=== PATIENT | female | born 1960 | race Caucasian/White ===

== ENCOUNTER 2017-09-19 12:03 | Emergency (ER) | payer MEDICARE, OTHER | END 2017-09-19 12:47 | disposition home or self-care (01) | LOC: E/R 12:03 | DX: J06.9 Acute upper respiratory infection, unspecified (principal); E11.9 Type 2 diabetes mellitus without complications; J45.909 Unspecified asthma, uncomplicated; Z79.4 Long term (current) use of insulin; Z79.82 Long term (current) use of aspirin | CPT/HCPCS: 99283 ==

== ENCOUNTER 2017-09-21 12:28 | Emergency (ER) | payer MEDICARE ==
[2017-09-21] MEDS: IPRATROPIUM (NEB) 0.5 MG/2.5 ML AMP HHN (15:23)
[2017-09-21] MEDS: ALBUTEROL 0.083% (NEB) 2.5 MG/3 ML AMP HHN (15:23)
== END 2017-09-21 15:55 | disposition home or self-care (01) ==
LOC: FTE 12:28
DX: J45.901 Unspecified asthma with (acute) exacerbation (principal); I10 Essential (primary) hypertension; E11.9 Type 2 diabetes mellitus without complications; Z79.4 Long term (current) use of insulin; Z79.82 Long term (current) use of aspirin
CPT/HCPCS: 94664; 99284-25

== ENCOUNTER 2017-12-17 11:25 | Emergency (ER) | payer MEDICARE ==
[2017-12-17 13:36] LABS: ADD UMIC YES; UR ASCORBIC ACID NEGATIVE (NEGATIVE); UR BACTERIA FEW /HPF (NONE SEEN); UR BILIRUBIN (Dip) NEGATIVE (NEGATIVE); UR BLOOD (Dip) 2+ mg/dL (NEGATIVE); UR CLARITY CLOUDY (CLEAR); UR COLOR YELLOW (YELLOW); UR GLUCOSE (Dip) NEGATIVE (NEGATIVE); UR KETONES (Dip) NEGATIVE (NEGATIVE); UR LEUKOCYTE ESTERASE (Dip) 3+ Leu/ul (NEGATIVE); UR NITRITE (Dip) NEGATIVE (NEGATIVE); UR RBC 27 /HPF (0-5); UR SPECIFIC GRAVITY (Dip) 1.013 (1.003-1.030); UR TOTAL PROTEIN (Dip) 1+ mg/dl (NEGATIVE); UR UROBILINOGEN (Dip) NEGATIVE (NEGATIVE); UR WBC > 182 /HPF (0-5)
== END 2017-12-17 13:23 | disposition home or self-care (01) ==
LOC: FTE 11:25
DX: N39.0 Urinary tract infection, site not specified (principal); I10 Essential (primary) hypertension; E11.9 Type 2 diabetes mellitus without complications; J45.909 Unspecified asthma, uncomplicated; Z79.4 Long term (current) use of insulin; Z79.82 Long term (current) use of aspirin
CPT/HCPCS: 81001; 87086; 99283

== ENCOUNTER 2018-03-23 00:39 | Emergency (ER) | payer MEDICARE ==
[2018-03-23 05:11] LABS: URINE BLOOD (Dip) POC Negative (NEGATIVE); URINE GLUCOSE (Dip) POC Negative (NEGATIVE); URINE KETONES (Dip) POC 1+ (NEGATIVE); URINE LEUKOCYTE EST (Dip) POC Negative (NEGATIVE); URINE NITRITE (Dip) POC Negative (NEGATIVE); URINE TOTAL PROTEIN POC 2+ (NEGATIVE)
[2018-03-23 05:25] LABS: ADD MAN DIFF? NO; BASOPHIL # 0.1 10^3/ul (0.0-0.1); BASOPHILS % 0.3 % (0.0-2.0); EOSINOPHILS # 0.2 10^3/ul (0.0-0.5); EOSINOPHILS % 1.3 % (0.0-7.0); HEMATOCRIT 46.8 % (37.0-47.0); HEMOGLOBIN 14.5 g/dl (12.0-16.0); LYMPHOCYTES # 2.9 10^3/ul (0.8-2.9); LYMPHOCYTES % 15.8 % (15.0-51.0); MEAN CORPUSCULAR HEMOGLOBIN 26.7 pg (29.0-33.0); MEAN CORPUSCULAR VOLUME 86.2 fl (82.0-101.0); MEAN PLATELET VOLUME 9.5 fl (7.4-10.4); MONOCYTE # 0.8 10^3/ul (0.3-0.9); MONOCYTES % 4.5 % (0.0-11.0); NEUTROPHIL # 14.1 10^3/ul (1.6-7.5); NEUTROPHILS % 77.4 % (39.0-77.0); PLATELET COUNT 343 10^3/UL (140-415); RED BLOOD COUNT 5.43 10^6/ul (4.20-5.40); RED CELL DISTRIBUTION WIDTH 15.3 % (11.5-14.5)
[2018-03-23 05:25] LABS: WHITE BLOOD COUNT 18.2 10^3/ul (4.8-10.8)
[2018-03-23 05:53] LABS: ALANINE AMINOTRANSFERASE 36 IU/L (13-69); ALBUMIN/GLOBULIN RATIO 1.28; ALKALINE PHOSPHATASE 137 IU/L (42-121); ANION GAP 18 (8-16); ASPARTATE AMINO TRANSFERASE 34 IU/L (15-46); BILIRUBIN,INDIRECT 0.4 mg/dl (0-1.1); BILIRUBIN,TOTAL 0.4 mg/dl (0.2-1.3); BLOOD UREA NITROGEN 27 mg/dl (7-20); CALCIUM 10.5 mg/dl (8.4-10.2); CARBON DIOXIDE 21 mmol/L (21-31); CHLORIDE 114 mmol/L (97-110); CREATININE 1.31 mg/dl (0.44-1.00); GLUCOSE 179 mg/dl (70-220); LIPASE 66 U/L (23-300); SODIUM 148 mmol/L (135-144); TOTAL PROTEIN 8.9 g/dl (6.1-8.1)
[2018-03-23] MEDS: morphine 2 MG INJ IV ×2 (06:00→06:21)
[2018-03-23] MEDS: HYDROmorphONE 1 MG/ML SYG IV (06:35)
[2018-03-23] MEDS: SOD CHLORIDE 0.9% 1,000 ML IV (06:35)
[2018-03-23] MEDS: ONDANSETRON 4 MG INJ IV (06:35)
== END 2018-03-23 09:26 | disposition home or self-care (01) ==
LOC: E/R 00:39
DX: K56.7 Ileus, unspecified (principal); D72.829 Elevated white blood cell count, unspecified; I10 Essential (primary) hypertension; E11.9 Type 2 diabetes mellitus without complications; J45.909 Unspecified asthma, uncomplicated; Z79.4 Long term (current) use of insulin; Z79.82 Long term (current) use of aspirin
CPT/HCPCS: 36415; 74176; 80053; 81003; 82962; 83690; 85025; 96374; 96375; 99285-25

== ENCOUNTER 2018-06-01 12:09 | Emergency (ER) | payer OTHER, MEDICARE ==
[2018-06-01] MEDS: ACETAMINOPHEN 500 MG TAB PO (13:23)
== END 2018-06-01 15:20 | disposition home or self-care (01) ==
LOC: FTE 12:09
DX: S62.346A Nondisplaced fracture of base of fifth metacarpal bone, right hand, initial encounter for closed fracture (principal); E11.9 Type 2 diabetes mellitus without complications; I10 Essential (primary) hypertension; J45.909 Unspecified asthma, uncomplicated; W01.0XXA Fall on same level from slipping, tripping and stumbling without subsequent striking against object, initial encounter; Y92.9 Unspecified place or not applicable; Z79.4 Long term (current) use of insulin; Z79.82 Long term (current) use of aspirin
CPT/HCPCS: 29125; 73110-RT; 73130-RT; 99283-25

== ENCOUNTER 2018-06-21 18:01 | Emergency (ER) | payer OTHER ==
[2018-06-21 19:43] LABS: URINE BLOOD (Dip) POC 3+ (NEGATIVE); URINE GLUCOSE (Dip) POC Negative (NEGATIVE); URINE KETONES (Dip) POC Negative (NEGATIVE); URINE LEUKOCYTE EST (Dip) POC 1+ (NEGATIVE); URINE NITRITE (Dip) POC Negative (NEGATIVE); URINE TOTAL PROTEIN POC 3+ (NEGATIVE)
[2018-06-21 19:43] LABS: URINE PH (Dip) POC 8.5 (5.0-8.5)
== END 2018-06-21 20:00 | disposition home or self-care (01) ==
LOC: E/R 18:01
DX: I10 Essential (primary) hypertension (principal); E11.9 Type 2 diabetes mellitus without complications; J45.909 Unspecified asthma, uncomplicated; Z79.82 Long term (current) use of aspirin; Z79.4 Long term (current) use of insulin
CPT/HCPCS: 81003; 99283

== ENCOUNTER 2018-12-12 23:16 | Observation (INO) | payer OTHER ==
[2018-12-13 00:03] LABS: URINE BLOOD (Dip) POC Trace-intact (NEGATIVE); URINE GLUCOSE (Dip) POC Negative (NEGATIVE); URINE KETONES (Dip) POC Negative (NEGATIVE); URINE LEUKOCYTE EST (Dip) POC 1+ (NEGATIVE); URINE NITRITE (Dip) POC Negative (NEGATIVE); URINE TOTAL PROTEIN POC Negative (NEGATIVE)
[2018-12-13 00:03] LABS: URINE PH (Dip) POC 5.5 (5.0-8.5)
[2018-12-13 00:12] LABS: ADD MAN DIFF? NO
[2018-12-13] MEDS: LOPERAMIDE 2 MG CAP PO (00:12)
[2018-12-13] MEDS: morphine 2 MG INJ IV ×2 (00:12→06:57)
[2018-12-13] MEDS: ONDANSETRON 4 MG INJ IV (00:12)
[2018-12-13 00:26] LABS: WHITE BLOOD COUNT 15.6 10^3/ul (4.8-10.8)
[2018-12-13 00:26] LABS: BASOPHIL # 0.1 10^3/ul (0.0-0.1); BASOPHILS % 0.6 % (0.0-2.0); EOSINOPHILS # 1.1 10^3/ul (0.0-0.5); HEMOGLOBIN 13.1 g/dl (12.0-16.0); LYMPHOCYTES # 4.8 10^3/ul (0.8-2.9); LYMPHOCYTES % 30.4 % (15.0-51.0); MEAN CORPUSCULAR HEMOGLOBIN 26.5 pg (29.0-33.0); MEAN CORPUSCULAR HGB CONC 30.5 g/dl (32.0-37.0); MEAN CORPUSCULAR VOLUME 86.9 fl (82.0-101.0); MEAN PLATELET VOLUME 9.6 fl (7.4-10.4); MONOCYTE # 0.8 10^3/ul (0.3-0.9); MONOCYTES % 5.1 % (0.0-11.0); NEUTROPHIL # 8.8 10^3/ul (1.6-7.5); NEUTROPHILS % 56.3 % (39.0-77.0); PLATELET COUNT 299 10^3/UL (140-415); RED BLOOD COUNT 4.95 10^6/ul (4.20-5.40); RED CELL DISTRIBUTION WIDTH 15.9 % (11.5-14.5)
[2018-12-13 00:39] LABS: ALANINE AMINOTRANSFERASE 19 IU/L (13-69); ALBUMIN 4.4 g/dl (3.3-4.9); ALBUMIN/GLOBULIN RATIO 1.25; ALKALINE PHOSPHATASE 104 IU/L (42-121); ANION GAP 14 (5-13); ASPARTATE AMINO TRANSFERASE 26 IU/L (15-46); BILIRUBIN,INDIRECT 0.1 mg/dl (0-1.1); BILIRUBIN,TOTAL 0.1 mg/dl (0.2-1.3); BLOOD UREA NITROGEN 22 mg/dl (7-20); CALCIUM 9.9 mg/dl (8.4-10.2); CARBON DIOXIDE 24 mmol/L (21-31); CHLORIDE 105 mmol/L (97-110); CREATININE 0.98 mg/dl (0.44-1.00); Estimated GFR 58 mL/min (>60); GLUCOSE 58 mg/dl (70-220); LIPASE 79 U/L (23-300); POTASSIUM 4.6 mmol/L (3.5-5.1); SODIUM 143 mmol/L (135-144); TOTAL PROTEIN 7.9 g/dl (6.1-8.1)
[2018-12-13] MEDS ORDERED: DEXTROSE 50% 50 ML SYRINGE (01:02)
[2018-12-13] MEDS: CEFTRIAXONE 1 GM/50 ML (PMX) 50 ML IVPB (02:11)
[2018-12-13] MEDS: metroNIDAZOLE 500 MG/NS (PMX) 100 ML IVPB ×3 (03:53→20:37)
[2018-12-13] MEDS: DEXTROSE 10% 1,000 ML IV ×2 (03:54→13:30)
[2018-12-13] MEDS: LEVOFLOXACIN 500MG/D5W (PMX) 100 ML IVPB ×2 (06:30→07:43)
[2018-12-13] MEDS ORDERED: ACETAMINOPHEN 325 MG TAB PO (06:30)
[2018-12-13] MEDS ORDERED: NON-FORMULARY/PATIENT OWN MED (Triazolam* 0.25 MG) PO (06:30)
[2018-12-13] MEDS ORDERED: ONDANSETRON 4 MG INJ IV (06:30)
[2018-12-13] MEDS ORDERED: GLUCAGON 1 MG INJ IM (07:00)
[2018-12-13] MEDS ORDERED: GLUCOSE GEL 15 GRAM TUBE PO ×2 (07:00)
[2018-12-13] MEDS ORDERED: DEXTROSE 50% 50 ML SYRINGE IV ×2 (07:00)
[2018-12-13] MEDS ORDERED: GLUCOSE GEL 15 GRAM TUBE BUCCAL (07:00)
[2018-12-13] MEDS: INSULIN ASPART [NOVOLOG] 3 ML PEN SC ×5 (07:55→20:35)
[2018-12-13 08:24] LABS: ADD MAN DIFF? NO
[2018-12-13 08:25] LABS: WHITE BLOOD COUNT 13.9 10^3/ul (4.8-10.8)
[2018-12-13 08:25] LABS: BASOPHIL # 0.1 10^3/ul (0.0-0.1); BASOPHILS % 0.6 % (0.0-2.0); EOSINOPHILS # 1.1 10^3/ul (0.0-0.5); EOSINOPHILS % 7.6 % (0.0-7.0); HEMATOCRIT 39.8 % (37.0-47.0); HEMOGLOBIN 12.2 g/dl (12.0-16.0); LYMPHOCYTES # 3.5 10^3/ul (0.8-2.9); LYMPHOCYTES % 25.4 % (15.0-51.0); MEAN CORPUSCULAR HEMOGLOBIN 26.8 pg (29.0-33.0); MEAN CORPUSCULAR HGB CONC 30.7 g/dl (32.0-37.0); MEAN CORPUSCULAR VOLUME 87.5 fl (82.0-101.0); MEAN PLATELET VOLUME 9.7 fl (7.4-10.4); MONOCYTE # 0.8 10^3/ul (0.3-0.9); MONOCYTES % 5.4 % (0.0-11.0); NEUTROPHIL # 8.4 10^3/ul (1.6-7.5); NEUTROPHILS % 60.5 % (39.0-77.0); PLATELET COUNT 275 10^3/UL (140-415); RED BLOOD COUNT 4.55 10^6/ul (4.20-5.40); RED CELL DISTRIBUTION WIDTH 15.9 % (11.5-14.5)
[2018-12-13 08:45] LABS: ANION GAP 10 (5-13); BLOOD UREA NITROGEN 20 mg/dl (7-20); CALCIUM 9.5 mg/dl (8.4-10.2); CARBON DIOXIDE 26 mmol/L (21-31); CHLORIDE 108 mmol/L (97-110); CHOL/HDL RATIO 6.8 RATIO; CHOLESTEROL 164 mg/dl (100-200); CREATININE 1.02 mg/dl (0.44-1.00); Estimated GFR 56 mL/min (>60); GLUCOSE 149 mg/dl (70-220); HDL CHOLESTEROL 24 mg/dl (37-92); LDL CHOLESTEROL,CALCULATED 82 mg/dl; PHOSPHORUS 4.2 mg/dl (2.5-4.9); POTASSIUM 4.4 mmol/L (3.5-5.1); SODIUM 144 mmol/L (135-144); TRIGLYCERIDES 292 mg/dl (0-149)
[2018-12-13] MEDS ORDERED: NON-FORMULARY/PATIENT OWN MED (Salmeterol Xinaf/Fluticasone* (Advair*) 1 INH) INHALATION (09:00)
[2018-12-13] MEDS: ALBUTEROL HFA 8 GM INHALER INH ×4 (09:00→20:37)
[2018-12-13] MEDS ORDERED: NON-FORMULARY/PATIENT OWN MED (Omeprazole* 40 MG) PO (09:00)
[2018-12-13] MEDS ORDERED: NON-FORMULARY/PATIENT OWN MED (Meloxicam* 15 MG) PO (09:00)
[2018-12-13] MEDS: FERROUS SULFATE (EC) 325 MG TAB PO (09:04)
[2018-12-13] MEDS: LEVOFLOXACIN 500 MG TAB PO (09:04)
[2018-12-13] MEDS: metFORMIN 500 MG TAB PO (09:04)
[2018-12-13] MEDS: VENLAFAXINE 75 MG TABLET PO (09:05)
[2018-12-13] MEDS: BUPROPION 100 MG TAB PO ×2 (09:05→20:36)
[2018-12-13] MEDS: ASPIRIN (EC) 81 MG TAB PO (09:05)
[2018-12-13] MEDS: METOPROLOL 25 MG TAB PO (09:05)
[2018-12-13] MEDS: PANTOPRAZOLE (EC) 40 MG TAB PO (09:05)
[2018-12-13] MEDS: DICYCLOMINE 10 MG CAP PO ×3 (09:05→20:37)
[2018-12-13] MEDS: LISINOPRIL 20 MG TAB PO (09:06)
[2018-12-13] MEDS: ALPRAZOLAM 0.5 MG TAB PO ×2 (09:10→20:36)
[2018-12-13] MEDS: PREGABALIN 100 MG CAP PO ×2 (10:00→20:36)
[2018-12-13] MEDS: FLUTICASONE/VILANTEROL 100-25 INH (11:59)
[2018-12-13] MEDS ORDERED: PREGABALIN 50 MG CAP PO (12:00)
[2018-12-13] MEDS: MELOXICAM 15 MG TAB PO (12:15)
[2018-12-13] MEDS: DEXTROSE 5% 1,000 ML IV (13:11)
[2018-12-13] MEDS: LACTOBACILLUS RHAMNOSUS CAP PO (20:36)
[2018-12-13] MEDS: ZOLPIDEM 5 MG TAB PO (22:04)
[2018-12-14] MEDS: ALBUTEROL HFA 8 GM INHALER INH ×6 (01:00→20:16)
[2018-12-14] MEDS: ACCU-CHEK XX (01:12)
[2018-12-14] MEDS: DEXTROSE 5% 1,000 ML IV ×2 (03:52→17:14)
[2018-12-14] MEDS: PANTOPRAZOLE (EC) 40 MG TAB PO (05:06)
[2018-12-14] MEDS: metroNIDAZOLE 500 MG/NS (PMX) 100 ML IVPB ×3 (05:06→21:12)
[2018-12-14] MEDS: LEVOFLOXACIN 500 MG TAB PO (05:06)
[2018-12-14] MEDS ORDERED: LEVOFLOXACIN 500 MG TAB PO (08:00)
[2018-12-14] MEDS: BUPROPION 100 MG TAB PO ×2 (08:10→20:16)
[2018-12-14] MEDS: FLUTICASONE/VILANTEROL 100-25 INH (08:10)
[2018-12-14] MEDS: DICYCLOMINE 10 MG CAP PO ×3 (08:10→20:16)
[2018-12-14] MEDS: LACTOBACILLUS RHAMNOSUS CAP PO ×2 (08:10→20:15)
[2018-12-14] MEDS: ALPRAZOLAM 0.5 MG TAB PO ×2 (08:11→20:16)
[2018-12-14] MEDS: LISINOPRIL 20 MG TAB PO (08:11)
[2018-12-14] MEDS: VENLAFAXINE 75 MG TABLET PO (08:11)
[2018-12-14] MEDS: MELOXICAM 15 MG TAB PO (08:11)
[2018-12-14] MEDS: FERROUS SULFATE (EC) 325 MG TAB PO (08:11)
[2018-12-14] MEDS: PREGABALIN 100 MG CAP PO ×2 (08:11→20:15)
[2018-12-14] MEDS: ASPIRIN (EC) 81 MG TAB PO (08:12)
[2018-12-14] MEDS: METOPROLOL 25 MG TAB PO (08:12)
[2018-12-14] MEDS: INSULIN ASPART [NOVOLOG] 3 ML PEN SC ×4 (08:13→20:51)
[2018-12-14 08:46] LABS: ADD MAN DIFF? NO
[2018-12-14 08:49] LABS: BASOPHIL # 0.1 10^3/ul (0.0-0.1); BASOPHILS % 0.5 % (0.0-2.0); EOSINOPHILS # 1.2 10^3/ul (0.0-0.5); EOSINOPHILS % 12.4 % (0.0-7.0); HEMATOCRIT 40.4 % (37.0-47.0); HEMOGLOBIN 12.3 g/dl (12.0-16.0); LYMPHOCYTES # 2.6 10^3/ul (0.8-2.9); LYMPHOCYTES % 25.7 % (15.0-51.0); MEAN CORPUSCULAR HEMOGLOBIN 26.7 pg (29.0-33.0); MEAN CORPUSCULAR HGB CONC 30.4 g/dl (32.0-37.0); MEAN CORPUSCULAR VOLUME 87.8 fl (82.0-101.0); MEAN PLATELET VOLUME 9.7 fl (7.4-10.4); MONOCYTE # 0.6 10^3/ul (0.3-0.9); MONOCYTES % 5.7 % (0.0-11.0); NEUTROPHIL # 5.5 10^3/ul (1.6-7.5); NEUTROPHILS % 55.2 % (39.0-77.0); PLATELET COUNT 253 10^3/UL (140-415); RED CELL DISTRIBUTION WIDTH 15.7 % (11.5-14.5)
[2018-12-14 08:49] LABS: WHITE BLOOD COUNT 9.9 10^3/ul (4.8-10.8)
[2018-12-14 09:09] LABS: BLOOD UREA NITROGEN 13 mg/dl (7-20); CARBON DIOXIDE 27 mmol/L (21-31); CHLORIDE 106 mmol/L (97-110); CREATININE 0.89 mg/dl (0.44-1.00); Estimated GFR > 60 mL/min (>60); GLUCOSE 167 mg/dl (70-220); POTASSIUM 4.6 mmol/L (3.5-5.1)
[2018-12-14 09:10] LABS: MAGNESIUM 1.9 mg/dl (1.7-2.5)
[2018-12-14 09:10] LABS: PHOSPHORUS 3.6 mg/dl (2.5-4.9)
[2018-12-14 09:16] LABS: ANION GAP 9 (5-13); SODIUM 142 mmol/L (135-144)
[2018-12-14] MEDS: ZOLPIDEM 5 MG TAB PO (21:12)
[2018-12-15] MEDS: ALBUTEROL HFA 8 GM INHALER INH ×3 (01:00→08:17)
[2018-12-15] MEDS: ACCU-CHEK XX (02:00)
[2018-12-15] MEDS: metroNIDAZOLE 500 MG/NS (PMX) 100 ML IVPB (05:12)
[2018-12-15] MEDS: LEVOFLOXACIN 500 MG TAB PO (05:12)
[2018-12-15] MEDS: PANTOPRAZOLE (EC) 40 MG TAB PO (05:12)
[2018-12-15] MEDS: DEXTROSE 5% 1,000 ML IV (05:13)
[2018-12-15 06:51] LABS: ADD MAN DIFF? NO
[2018-12-15 06:58] LABS: WHITE BLOOD COUNT 12.3 10^3/ul (4.8-10.8)
[2018-12-15 06:58] LABS: BASOPHIL # 0.1 10^3/ul (0.0-0.1); BASOPHILS % 0.6 % (0.0-2.0); EOSINOPHILS # 1.2 10^3/ul (0.0-0.5); EOSINOPHILS % 9.5 % (0.0-7.0); HEMATOCRIT 40.7 % (37.0-47.0); HEMOGLOBIN 12.8 g/dl (12.0-16.0); LYMPHOCYTES # 3.7 10^3/ul (0.8-2.9); LYMPHOCYTES % 30.2 % (15.0-51.0); MEAN CORPUSCULAR HEMOGLOBIN 26.8 pg (29.0-33.0); MEAN CORPUSCULAR HGB CONC 31.4 g/dl (32.0-37.0); MEAN CORPUSCULAR VOLUME 85.3 fl (82.0-101.0); MEAN PLATELET VOLUME 9.7 fl (7.4-10.4); MONOCYTE # 0.7 10^3/ul (0.3-0.9); MONOCYTES % 5.7 % (0.0-11.0); NEUTROPHIL # 6.6 10^3/ul (1.6-7.5); NEUTROPHILS % 53.7 % (39.0-77.0); PLATELET COUNT 264 10^3/UL (140-415); RED BLOOD COUNT 4.77 10^6/ul (4.20-5.40); RED CELL DISTRIBUTION WIDTH 15.3 % (11.5-14.5)
[2018-12-15 07:38] LABS: ANION GAP 8 (5-13); BLOOD UREA NITROGEN 12 mg/dl (7-20); CALCIUM 9.3 mg/dl (8.4-10.2); CARBON DIOXIDE 28 mmol/L (21-31); CHLORIDE 106 mmol/L (97-110); CREATININE 0.78 mg/dl (0.44-1.00); Estimated GFR > 60 mL/min (>60); GLUCOSE 182 mg/dl (70-220); POTASSIUM 4.4 mmol/L (3.5-5.1); SODIUM 142 mmol/L (135-144)
[2018-12-15] MEDS: FLUTICASONE/VILANTEROL 100-25 INH (08:16)
[2018-12-15] MEDS: LACTOBACILLUS RHAMNOSUS CAP PO (08:17)
[2018-12-15] MEDS: FERROUS SULFATE (EC) 325 MG TAB PO (08:17)
[2018-12-15] MEDS: ASPIRIN (EC) 81 MG TAB PO (08:17)
[2018-12-15] MEDS: MELOXICAM 15 MG TAB PO (08:17)
[2018-12-15] MEDS: BUPROPION 100 MG TAB PO (08:17)
[2018-12-15] MEDS: LISINOPRIL 20 MG TAB PO (08:17)
[2018-12-15] MEDS: VENLAFAXINE 75 MG TABLET PO (08:17)
[2018-12-15] MEDS: DICYCLOMINE 10 MG CAP PO (08:17)
[2018-12-15] MEDS: METOPROLOL 25 MG TAB PO (08:18)
[2018-12-15] MEDS: INSULIN ASPART [NOVOLOG] 3 ML PEN SC ×2 (08:21→12:08)
[2018-12-15] MEDS: ALPRAZOLAM 0.5 MG TAB PO (08:23)
[2018-12-15] MEDS: PREGABALIN 100 MG CAP PO (08:23)
== END 2018-12-15 14:45 | disposition home or self-care (01) ==
LOC: E/R 23:16 → TEL 12-13 03:21
PROVIDERS: Internal Medicine
DX: K52.9 Noninfective gastroenteritis and colitis, unspecified (principal); R09.02 Hypoxemia; E11.40 Type 2 diabetes mellitus with diabetic neuropathy, unspecified; I10 Essential (primary) hypertension; F41.8 Other specified anxiety disorders; K21.9 Gastro-esophageal reflux disease without esophagitis; J45.909 Unspecified asthma, uncomplicated; Z79.84 Long term (current) use of oral hypoglycemic drugs; Z79.82 Long term (current) use of aspirin; Z79.4 Long term (current) use of insulin
CPT/HCPCS: 36415; 71046; 74176; 80048; 80053; 80061; 81003; 82962; 83036; 83690; 83735; 84100; 85025; 86674; 87045; 87075; 87205; 96374; 96375; 99285-25; G0378

== ENCOUNTER 2019-01-02 16:36 | Emergency (ER) | payer OTHER ==
[2019-01-02] MEDS: ALBUTEROL 0.083% (NEB) 2.5 MG/3 ML AMP NEB (18:48)
[2019-01-02] MEDS: DEXAMETHASONE 10 MG/ML 1 ML INJ IM (18:53)
== END 2019-01-02 20:20 | disposition home or self-care (01) ==
LOC: E/R 16:36
DX: J45.901 Unspecified asthma with (acute) exacerbation (principal); I10 Essential (primary) hypertension; E11.9 Type 2 diabetes mellitus without complications; Z79.4 Long term (current) use of insulin
CPT/HCPCS: 94664; 96372; 99284-25

== ENCOUNTER 2019-02-11 15:48 | Emergency (ER) | payer OTHER ==
[2019-02-11] MEDS: ALBUTEROL 0.5% (NEB) 2.5 MG/0.5 ML AMP INH ×2 (16:41→18:04)
[2019-02-11 17:01] LABS: ADD MAN DIFF? NO
[2019-02-11 17:05] LABS: WHITE BLOOD COUNT 16.2 10^3/ul (4.8-10.8)
[2019-02-11 17:05] LABS: BASOPHIL # 0.1 10^3/ul (0.0-0.1); BASOPHILS % 0.5 % (0.0-2.0); EOSINOPHILS # 0.6 10^3/ul (0.0-0.5); EOSINOPHILS % 3.5 % (0.0-7.0); HEMATOCRIT 41.8 % (37.0-47.0); HEMOGLOBIN 13.3 g/dl (12.0-16.0); LYMPHOCYTES % 24.6 % (15.0-51.0); MEAN CORPUSCULAR HEMOGLOBIN 27.1 pg (29.0-33.0); MEAN CORPUSCULAR HGB CONC 31.8 g/dl (32.0-37.0); MEAN CORPUSCULAR VOLUME 85.1 fl (82.0-101.0); MEAN PLATELET VOLUME 9.4 fl (7.4-10.4); MONOCYTE # 0.7 10^3/ul (0.3-0.9); MONOCYTES % 4.2 % (0.0-11.0); NEUTROPHIL # 10.8 10^3/ul (1.6-7.5); NEUTROPHILS % 66.6 % (39.0-77.0); PLATELET COUNT 267 10^3/UL (140-415); RED BLOOD COUNT 4.91 10^6/ul (4.20-5.40); RED CELL DISTRIBUTION WIDTH 15.8 % (11.5-14.5)
[2019-02-11 17:23] LABS: ANION GAP 13 (5-13); BLOOD UREA NITROGEN 19 mg/dl (7-20); CALCIUM 9.6 mg/dl (8.4-10.2); CARBON DIOXIDE 24 mmol/L (21-31); CHLORIDE 108 mmol/L (97-110); CREATININE 0.93 mg/dl (0.44-1.00); Estimated GFR > 60 mL/min (>60); GLUCOSE 244 mg/dl (70-220); POTASSIUM 4.6 mmol/L (3.5-5.1); SODIUM 145 mmol/L (135-144)
== END 2019-02-11 18:58 | disposition home or self-care (01) ==
LOC: FTE 15:48
DX: J45.901 Unspecified asthma with (acute) exacerbation (principal); I10 Essential (primary) hypertension; E11.9 Type 2 diabetes mellitus without complications; Z79.4 Long term (current) use of insulin
CPT/HCPCS: 71045; 80048; 85025; 94640; 94664; 99284-25

== ENCOUNTER 2019-02-13 16:10 | Emergency (ER) | payer OTHER | END 2019-02-13 17:10 | disposition home or self-care (01) | LOC: FTE 16:10 | DX: J45.901 Unspecified asthma with (acute) exacerbation (principal); E11.9 Type 2 diabetes mellitus without complications; I10 Essential (primary) hypertension; Z79.4 Long term (current) use of insulin | CPT/HCPCS: 99283 ==

== ENCOUNTER 2019-04-05 21:24 | Emergency (ER) | payer OTHER ==
[2019-04-05 23:05] LABS: URINE PH (Dip) POC 5.5 (5.0-8.5)
[2019-04-05 23:05] LABS: URINE BLOOD (Dip) POC Negative (NEGATIVE); URINE GLUCOSE (Dip) POC Negative (NEGATIVE); URINE KETONES (Dip) POC Trace (NEGATIVE); URINE LEUKOCYTE EST (Dip) POC 2+ (NEGATIVE); URINE NITRITE (Dip) POC Negative (NEGATIVE); URINE TOTAL PROTEIN POC 1+ (NEGATIVE)
[2019-04-05] MEDS: DICYCLOMINE 20 MG INJ IM (23:21)
[2019-04-05] MEDS: KETOROLAC 15 MG INJ IV (23:21)
[2019-04-05] MEDS: SOD CHLORIDE 0.9% 1,000 ML IV (23:21)
== END 2019-04-06 00:36 | disposition home or self-care (01) ==
LOC: E/R 21:24
DX: K58.9 Irritable bowel syndrome, unspecified (principal); I10 Essential (primary) hypertension; J45.909 Unspecified asthma, uncomplicated; Z79.4 Long term (current) use of insulin
CPT/HCPCS: 81003; 96372; 96374; 99284-25

== ENCOUNTER 2019-04-19 15:12 | Inpatient (IN) | payer OTHER ==
[2019-04-19] MEDS: DEXAMETHASONE 10 MG/ML 1 ML INJ IM (16:03)
[2019-04-19] MEDS: IPRATROPIUM (NEB) 0.5 MG/2.5 ML AMP NEB (16:32)
[2019-04-19] MEDS: ALBUTEROL 0.5% (NEB) 2.5 MG/0.5 ML AMP INH (16:32)
[2019-04-19 16:36] LABS: WHITE BLOOD COUNT 18.8 10^3/ul (4.8-10.8)
[2019-04-19 16:36] LABS: ADD MAN DIFF? NO; BASOPHIL # 0.1 10^3/ul (0.0-0.1); BASOPHILS % 0.4 % (0.0-2.0); EOSINOPHILS # 0.3 10^3/ul (0.0-0.5); EOSINOPHILS % 1.3 % (0.0-7.0); HEMATOCRIT 40.7 % (37.0-47.0); HEMOGLOBIN 12.6 g/dl (12.0-16.0); LYMPHOCYTES # 3.4 10^3/ul (0.8-2.9); LYMPHOCYTES % 18.3 % (15.0-51.0); MEAN CORPUSCULAR HEMOGLOBIN 27.1 pg (29.0-33.0); MEAN CORPUSCULAR VOLUME 87.5 fl (82.0-101.0); MEAN PLATELET VOLUME 9.4 fl (7.4-10.4); MONOCYTE # 0.9 10^3/ul (0.3-0.9); MONOCYTES % 4.7 % (0.0-11.0); NEUTROPHIL # 14.1 10^3/ul (1.6-7.5); NEUTROPHILS % 74.8 % (39.0-77.0); PLATELET COUNT 312 10^3/UL (140-415); RED BLOOD COUNT 4.65 10^6/ul (4.20-5.40)
[2019-04-19 16:57] LABS: ANION GAP 11 (5-13); BLOOD UREA NITROGEN 22 mg/dl (7-20); CALCIUM 9.7 mg/dl (8.4-10.2); CARBON DIOXIDE 28 mmol/L (21-31); CHLORIDE 101 mmol/L (97-110); CREATININE 1.12 mg/dl (0.44-1.00); Estimated GFR 50 mL/min (>60); GLUCOSE 272 mg/dl (70-220); POTASSIUM 4.4 mmol/L (3.5-5.1); SODIUM 140 mmol/L (135-144)
[2019-04-19 17:08] LABS: TROPONIN-I < 0.012 ng/ml (0.000-0.120)
[2019-04-19] MEDS: CEFTRIAXONE 1 GM/50 ML (PMX) 50 ML IVPB (18:00)
[2019-04-19] MEDS: AZITHROMYCIN 500MG/NS (PMX) 250 ML IV (18:29)
[2019-04-19] MEDS ORDERED: ONDANSETRON 4 MG INJ IV ×2 (18:30→20:00)
[2019-04-19] MEDS ORDERED: ACETAMINOPHEN 325 MG TAB PO (18:30)
[2019-04-19] MEDS ORDERED: NON-FORMULARY/PATIENT OWN MED (Sitagliptin* (Januvia*) 100 MG) PO (20:00)
[2019-04-19] MEDS ORDERED: BENZONATATE 100 MG CAP PO (20:00)
[2019-04-19] MEDS ORDERED: GLUCAGON 1 MG INJ IM (20:30)
[2019-04-19] MEDS ORDERED: DEXTROSE 50% 50 ML SYRINGE IV ×2 (20:30)
[2019-04-19] MEDS ORDERED: GLUCOSE GEL 15 GRAM TUBE PO ×2 (20:30)
[2019-04-19] MEDS ORDERED: GLUCOSE GEL 15 GRAM TUBE BUCCAL (20:30)
[2019-04-19] MEDS: ALBUTEROL/IPRATROPIUM (NEB) 3 ML AMP HHN (20:43)
[2019-04-19] MEDS: BUPROPION 100 MG TAB PO (21:00)
[2019-04-19] MEDS ORDERED: PREGABALIN 100 MG CAP PO (21:00)
[2019-04-19] MEDS: DICYCLOMINE 10 MG CAP PO (21:00)
[2019-04-19] MEDS: PREGABALIN 50 MG CAP PO (21:44)
[2019-04-19] MEDS: INSULIN ASPART [NOVOLOG] 3 ML PEN SC (21:47)
[2019-04-19] MEDS: METOPROLOL 25 MG TAB PO (21:49)
[2019-04-19] MEDS: METHYLPREDNISOLONE 125 MG INJ IV (21:49)
[2019-04-19 22:24] LABS: LACTIC ACID 1.9 mmol/L (0.5-2.0)
[2019-04-19] MEDS: LISINOPRIL 20 MG TAB PO (22:50)
[2019-04-19] MEDS: INSULIN GLARGINE [LANTus] (100 UNITS/ML) SYG SC (22:57)
[2019-04-19] MEDS: ZOLPIDEM 5 MG TAB PO (23:36)
[2019-04-20] MEDS: ALBUTEROL/IPRATROPIUM (NEB) 3 ML AMP HHN ×5 (00:57→16:40)
[2019-04-20] MEDS: LEVOFLOXACIN 750 MG TABLET PO (06:11)
[2019-04-20] MEDS: PANTOPRAZOLE (EC) 40 MG TAB PO (06:11)
[2019-04-20] MEDS: METHYLPREDNISOLONE 125 MG INJ IV ×2 (06:12→13:25)
[2019-04-20] MEDS ORDERED: INSULIN ASPART [NOVOLOG] 3 ML PEN SC (07:35)
[2019-04-20] MEDS ORDERED: INSULIN GLARGINE [LANTus] (100 UNITS/ML) SYG SC ×2 (08:00→21:00)
[2019-04-20] MEDS: PREGABALIN 50 MG CAP PO ×2 (08:32→12:15)
[2019-04-20] MEDS: DICYCLOMINE 10 MG CAP PO ×2 (08:32→12:15)
[2019-04-20] MEDS: VENLAFAXINE (XR) 75 MG CAP PO (08:32)
[2019-04-20] MEDS: BUPROPION 100 MG TAB PO (08:32)
[2019-04-20] MEDS: LINAGLIPTIN 5 MG TABLET PO (08:32)
[2019-04-20] MEDS: metFORMIN 500 MG TAB PO (08:33)
[2019-04-20] MEDS: INSULIN ASPART [NOVOLOG] 3 ML PEN SC ×4 (08:34→12:11)
[2019-04-20] MEDS: INSULIN GLARGINE [LANTus] (100 UNITS/ML) SYG SC (08:35)
[2019-04-20] MEDS: METOPROLOL 25 MG TAB PO (08:36)
[2019-04-20] MEDS: LISINOPRIL 20 MG TAB PO (08:36)
[2019-04-20] MEDS: TIOTROPIUM 18 MCG CAPSULE INHA DEV INH (08:37)
[2019-04-21] MEDS ORDERED: NPH, HUMAN INSULIN ISOPHANE 3ML VIAL SC (14:00)
== END 2019-04-20 17:11 | disposition home or self-care (01) | DRG 202 ==
LOC: FTE 15:12 → PP2 18:05
DX: J45.901 Unspecified asthma with (acute) exacerbation (principal); J18.9 Pneumonia, unspecified organism; E11.65 Type 2 diabetes mellitus with hyperglycemia; E66.9 Obesity, unspecified; Z68.38 Body mass index [BMI] 38.0-38.9, adult; I10 Essential (primary) hypertension; F32.9 Major depressive disorder, single episode, unspecified; E11.40 Type 2 diabetes mellitus with diabetic neuropathy, unspecified
CPT/HCPCS: 36415; 71045; 80048; 82962; 83605; 84484; 85025; 87040-91; 94640; 94644; 94664; 96372; 96374; 99285-25

== ENCOUNTER 2019-04-21 00:15 | Emergency (ER) | payer OTHER ==
[2019-04-21] MEDS: DIPHENHYDRAMINE 25 MG CAP PO (00:47)
[2019-04-21] MEDS: FAMOTIDINE 20 MG TAB PO (00:48)
== END 2019-04-21 01:02 | disposition home or self-care (01) ==
LOC: E/R 00:15
DX: R23.2 Flushing (principal)
CPT/HCPCS: 99283

== ENCOUNTER 2019-04-21 11:41 | Emergency (ER) | payer OTHER | END 2019-04-21 12:58 | disposition home or self-care (01) | LOC: E/R 11:41 | DX: J18.9 Pneumonia, unspecified organism (principal); I10 Essential (primary) hypertension; E11.9 Type 2 diabetes mellitus without complications; Z79.4 Long term (current) use of insulin | CPT/HCPCS: 99283 ==